=== PATIENT | male | born 1950 | race Caucasian/White ===

== ENCOUNTER → 2021-03-26 11:07 | Outpatient (CLI) | payer OTHER, SELFPAY ==
[2021-03-26 17:37] LABS: COVID19 -Nasal RAPID Negative (Negative)
== END ==
PROVIDERS: Visit Provider Nurse Practitioner Family
DX: Z20.822 Contact with and (suspected) exposure to COVID-19 (principal); J02.9 Acute pharyngitis, unspecified; R42 Dizziness and giddiness
CPT/HCPCS: 87635

== ENCOUNTER → 2021-08-10 09:19 | Outpatient (CLI) | payer OTHER, SELFPAY ==
--- NOTE | 2021-08-10 | DI.RAD.S_ITS ---
PROCEDURE: XR LUMBAR SPINE 2-3V INDICATIONS: LOW BACK PAIN TECHNIQUE: 3 views of the lumbar spine were acquired. COMPARISON: None. FINDINGS: Bones: 5 [id number] vertebrae are present. There is dextroconvex curvature of the lumbar spine centered at the L2-3 level. No vertebral body compression fractures. No suspicious bony lesions. Grade 2 anterolisthesis of L5 on S1 is seen secondary to bilateral pars defects. There is trace grade 1 degenerative retrolisthesis of L2 on L3 and L3 on L4. Multilevel disc space narrowing and degenerative endplate changes are seen that are most prominent at the L2-3 and L5-S1 levels. Multilevel facet hypertrophy is seen. Postsurgical changes are seen from prior right total hip arthroplasty. Severe degenerative changes are seen in the left hip. Soft tissues: Overlying bowel gas pattern is normal. No suspicious soft tissue calcifications. IMPRESSION: 1. 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 Multilevel trace grade 1 retrolisthesis due to degenerative disc disease. 2. Dextroconvex curvature of the lumbar spine. 3. Multilevel degenerative changes are most prominent at the L2-3 and L5-S1 levels. 4. Status post right hip arthroplasty. Severe left hip osteoarthrosis. Dictated by: Tera Bella M.D. on 08/10/2021 at 9:57 Approved by: Tera Bella M.D. on 08/10/2021 at 10:00
== END ==
PROVIDERS: PCP Family Medicine; Referring Provider Chiropractor; Visit Provider Chiropractor
DX: M47.816 Spondylosis without myelopathy or radiculopathy, lumbar region (principal); M47.817 Spondylosis without myelopathy or radiculopathy, lumbosacral region; M43.17 Spondylolisthesis, lumbosacral region; M51.36 Other intervertebral disc degeneration, lumbar region; M51.37 Other intervertebral disc degeneration, lumbosacral region; M16.12 Unilateral primary osteoarthritis, left hip; Z96.641 Presence of right artificial hip joint
CPT/HCPCS: 72100

== ENCOUNTER → 2021-09-03 14:40 | Outpatient (CLI) | payer OTHER, SELFPAY ==
--- NOTE | 2021-09-03 14:42 | DI.MG.S_ITS ---
BILATERAL DIGITAL SCREENING MAMMOGRAM 3D/2D WITH CAD: 09/03/2021 CLINICAL: Routine screening. Comparison is made to exams dated: 07/10/2020 mammogram, 05/17/2019 mammogram, and 05/13/2018 mammogram - outside location. The tissue of both breasts is heterogeneously dense. This may lower the sensitivity of mammography. Current study was also evaluated with a Computer Aided Detection (CAD) system. There is an oval equal density focal asymmetry with an indistinct and circumscribed margin in the right breast middle depth lateral region seen on the craniocaudal view only. No other significant masses, calcifications, or other findings are seen in either breast. IMPRESSION: INCOMPLETE: NEEDS ADDITIONAL IMAGING EVALUATION The oval equal density focal asymmetry in the right breast is indeterminate. Mediolateral and spot compression views as well as additional views with possible ultrasound are recommended. This exam was interpreted at Station ID: [id number]. NOTE: For mammograms, a report in lay terms will be sent to the patient. Approximately 15% of breast malignancies will not be visualized mammographically. In the management of a palpable breast mass, a negative mammogram must not discourage biopsy of a clinically suspicious lesion. Electronically Signed By: Chano payne/dorian:09/03/2021 16:24:13 letter sent: Additional Imaging Needed ACR BI-RADS Category 0: Incomplete 3340F
== END ==
PROVIDERS: PCP Family Medicine; Referring Provider Family Medicine; Visit Provider Family Medicine
DX: Z12.31 Encounter for screening mammogram for malignant neoplasm of breast (principal)
CPT/HCPCS: 77063; 77067

== ENCOUNTER → 2021-10-09 12:32 | Outpatient (CLI) | payer OTHER, SELFPAY ==
--- NOTE | 2021-10-09 | DI.MG.S_ITS ---
UNILATERAL RIGHT DIGITAL DIAGNOSTIC MAMMOGRAM 3D/2D WITH ADDITIONAL VIEWS: 10/09/2021 CLINICAL: Additional evaluation requested from prior study. Comparison is made to exams dated: 09/03/2021 mammogram - [facility], 07/10/2020 mammogram, and 05/17/2019 mammogram - outside location. The tissue of right breast is heterogeneously dense. This may lower the sensitivity of mammography. The oval asymmetry with indistinct and circumscribed margins in the right breast middle depth lateral region seen on the craniocaudal view only is not seen on additional views. No other significant masses or calcifications are seen in the breast. IMPRESSION: BENIGN There is no mammographic evidence of malignancy. A 1 year screening mammogram is recommended. This exam was interpreted at Station ID: [id number]. NOTE: For mammograms, a report in lay terms will be sent to the patient. Approximately 15% of breast malignancies will not be visualized mammographically. In the management of a palpable breast mass, a negative mammogram must not discourage biopsy of a clinically suspicious lesion. Electronically Signed By: Chano Phipps M.D. [email or web address]/:10/09/2021 13:22:43 letter sent: Normal Exam ACR BI-RADS Category 2: Benign Finding(s) 3342F
== END ==
PROVIDERS: PCP Family Medicine; Referring Provider Family Medicine; Visit Provider Family Medicine
DX: R92.8 Other abnormal and inconclusive findings on diagnostic imaging of breast (principal)
CPT/HCPCS: 77065; G0279

== ENCOUNTER → 2025-01-06 07:32 | Outpatient (CLI) | payer MEDICARE, SELFPAY ==
--- NOTE | 2025-01-06 07:33 | DI.MG.S_ITS ---
MM screening mammo BI: 01/06/2025. BI-RADS: 1 CLINICAL: 74-year old female for bilateral screening mammogram. Tyrer-Cuzick lifetime risk of 3.3%. No personal or first-degree family history of breast cancer. PRIOR EXAMS 10/14/2022, 10/09/2021, 09/03/2021. MAMMOGRAPHY TECHNIQUE: The examination is limited by clinical circumstance. 2D and 3D (tomosynthesis) digital mammographic views obtained, with additional images as needed for full coverage. Current study was also evaluated with a Computer Aided Detection (CAD) system. DENSITY C. The breasts are heterogeneously dense, which may obscure small masses. MAMMOGRAPHY FINDINGS Bilateral: No suspicious mass, asymmetry, microcalcification, or other abnormality seen. No significant change from comparison. IMPRESSION: * No evidence of malignancy. RECOMMENDATIONS Bilateral * Annual screening mammography. OVERALL ASSESSMENT CATEGORY BI-RADS-1: Negative. The [employer] recommends annual screening mammography beginning at age 40 for women with average risk of breast cancer. ELECTRONICALLY SIGNED: Laura Menchaca M.D. on 01/06/2025 at 12:52:31 PM PT Interpreting Station ID: [id number]
== END ==
PROVIDERS: PCP Family Medicine; Referring Provider Family Medicine; Visit Provider Family Medicine
DX: Z12.31 Encounter for screening mammogram for malignant neoplasm of breast (principal); R92.333 Mammographic heterogeneous density, bilateral breasts
CPT/HCPCS: 77063; 77067